=== PATIENT | female | born 1950 | race Caucasian/White ===

== ENCOUNTER 2023-10-24 09:34 | Emergency (ER) | payer MEDICAID ==
[~2023-10-24] VITALS: Ht 160 cm; Wt 109.0 kg
[2023-10-24 10:04] VITALS: BP 158/104; PULSE 97; RESP 18; TEMP 98.1; O2SAT 97
[2023-10-24] MEDS ORDERED: MAGNESIUM/ALUMINUM HYDROXIDE/SIMETHICONE 30ML UDC PO STA (10:16)
[2023-10-24] MEDS ORDERED: ONDANSETRON 4MG ODT PO STA (10:16)
[2023-10-24] MEDS ORDERED: FAMOTIDINE 20MG TABLET PO ONE (10:30)
[2023-10-24 11:31] LABS: BASOPHILS % 0.3 % (0.0-2.0); HEMATOCRIT. 43.3 % (36.0-48.0); HEMOGLOBIN. 14.7 g/dL (12.0-16.0); LYMPHOCYTES % 21.7 % (20.0-50.0); MEAN CORPUSCULAR HEMOGLOBIN 32.4 pg (28.0-32.0); MEAN CORPUSCULAR HGB CONC 33.9 g/dL (31.0-37.0); MEAN CORPUSCULAR VOLUME 95.6 fL (81.0-99.0); MEAN PLATELET VOLUME 8.2 fl (7.4-10.4); MONOCYTES % 3.8 % (2.0-8.0); NEUTROPHILS % 74.2 % (40.0-76.0); PLATELET 291 x1000/uL (130-400); RED BLOOD CELL COUNT 4.53 mill/uL (4.2-5.4); RED CELL DISTRIBUTION WIDTH 13.4 % (11.6-14.6); WHITE BLOOD COUNT 8.2 x1000/uL (4.5-11.0)
[2023-10-24 11:48] LABS: ALANINE AMINOTRANSFERASE 29 IU/L (10-49); ALBUMIN 5.1 g/dL (3.2-4.8); ASPARTATE AMINOTRANSFERASE 26 IU/L (<34); BILIRUBIN TOTAL 0.7 mg/dL (0.1-1.0); CALCIUM 9.8 mg/dL (8.7-10.4); CARBON DIOXIDE 24 mEq/L (21-32); CHLORIDE 103 mEq/L (98-107); CREATININE 0.7 mg/dL (0.6-1.0); GLUCOSE 132 mg/dL (70-105); POTASSIUM 3.9 mEq/L (3.5-5.1); PROTEIN TOTAL 9.7 g/dL (6.0-8.3); SODIUM 136 mEq/L (136-145); UREA NITROGEN BLOOD 15 mg/dL (9-23)
[2023-10-24 11:58] LABS: TROPONIN I HIGH SENSITIVITY < 4 ng/L (3.0-34)
[2023-10-24 15:49] LABS: TROPONIN I HIGH SENSITIVITY < 4 ng/L (3.0-34)
[2023-10-24] MEDS ORDERED: OMEP20TA23 MT (17:36)
== END 2023-10-24 17:57 | disposition home or self-care (01) ==
LOC: ER 09:34 → EDBD 09:34 → ER 17:57
DX: K21.9 Gastro-esophageal reflux disease without esophagitis (principal); Z98.890 Other specified postprocedural states
CPT/HCPCS: 36415; 71045; 76705; 80053; 84484; 85025; 93005; 99285